=== PATIENT | female | born 1965 | race Caucasian/White ===

== ENCOUNTER 2019-01-06 19:25 | Emergency (ER) | payer MEDICAID ==
[2019-01-06] MEDS ORDERED: IBUPROFEN 800 MG TABLET PO ONE (19:55)
--- NOTE | 2019-01-06 19:58 | ER Document Report ---
ED Medical Screen (RME) - General Chief Complaint: Abscess Stated Complaint: BOIL Time Seen by Provider: 01/06/19 19:51 Mode of Arrival: Ambulatory Information source: Patient Notes: Patient presents to the emergency department with an abscess to the middle of her back. Reports she is had it for long time but the past 4 days it started swollen drainage is severely painful. Denies fever. Denies history of MRSA. Reports she has had these abscesses before before Offered Percocet for pain declined request Motrin. I have greeted and performed a rapid initial assessment of this patient. A comprehensive ED assessment and evaluation of the patient, analysis of test results and completion of the medical decision making process will be conducted by additional ED providers. Dictation of this chart was performed using voice recognition software; therefore, there may be some unintended grammatical errors. TRAVEL OUTSIDE OF THE [place] IN LAST 30 DAYS: No - Related Data Allergies/Adverse Reactions: No Known Allergies Allergy (Unverified 01/06/19 19:28) Physical Exam - Vital signs Vitals: Temp Pulse Resp BP Pulse Ox 98.3 F 86 18 151/86 H 97 01/06/19 19:34 01/06/19 19:34 01/06/19 19:34 01/06/19 19:34 01/06/19 19:34 Course - Vital Signs Vital signs: Temp Pulse Resp BP Pulse Ox 98.3 F 86 18 151/86 H 97 01/06/19 19:34 01/06/19 19:34 01/06/19 19:34 01/06/19 19:34 01/06/19 19:34
[2019-01-06] MEDS ORDERED: LIDOCAINE 1%/EPINEPHRINE INJ 20 ML VIAL INJ ONE ×2 (20:18→20:19)
--- NOTE | 2019-01-06 20:23 | ER Document Report ---
ED Skin Rash/Insect Bite/Abscs - General Chief Complaint: Abscess Stated Complaint: BOIL Time Seen by Provider: 01/06/19 19:51 Primary Care Provider: COLETTE HADLEY DO [ACTIVE STAFF] - Follow up as needed Mode of Arrival: Ambulatory Notes: Patient is a 53 year old female that comes to the Emergency Department for chief complaint of an abscess to the right mid back. She states this is been present as a cyst for over a year but over the past 4 days it has become painful, swollen, and started to drain. She has had other abscesses drained in the past on her chest. She denies fever/chills, nausea/vomiting. She denies any other complaints. She denies diagnosis of MRSA. She denies any daily medications or any diagnosed medical problems. TRAVEL OUTSIDE OF THE [place] IN LAST 30 DAYS: No - Related Data Allergies/Adverse Reactions: No Known Allergies Allergy (Unverified 01/06/19 19:28) Past Medical History - General Information source: Patient - Social History Smoking Status: Current Every Day Smoker Chew tobacco use (# tins/day): No Frequency of alcohol use: Social Drug Abuse: None Lives with: Family Family History: Reviewed & Not Pertinent Patient has suicidal ideation: No Patient has homicidal ideation: No Pulmonary Medical History: Reports: Hx COPD Renal/ Medical History: Denies: Hx Peritoneal Dialysis Past Surgical History: Reports: Hx Tonsillectomy - Immunizations Immunizations up to date: Yes Hx Diphtheria, Pertussis, Tetanus Vaccination: Yes Review of Systems - Review of Systems Constitutional: No symptoms reported EENT: No symptoms reported Cardiovascular: No symptoms reported Respiratory: No symptoms reported Gastrointestinal: No symptoms reported Genitourinary: No symptoms reported Female Genitourinary: No symptoms reported Musculoskeletal: No symptoms reported Skin: See HPI Hematologic/Lymphatic: No symptoms reported Neurological/Psychological: No symptoms reported Physical Exam - Vital signs Vitals: Temp Pulse Resp BP Pulse Ox 98.3 F 86 18 151/86 H 97 01/06/19 19:34 01/06/19 19:34 01/06/19 19:34 01/06/19 19:34 01/06/19 19:34 - Notes Notes: GENERAL: Alert, interacts well. HEAD: Normocephalic, atraumatic. EYES: Pupils equal, round, and reactive to light. Extraocular movements intact. ENT: Oral mucosa moist, tongue midline. Oropharynx unremarkable. NECK: Full range of motion. Supple. Trachea midline. LUNGS: Clear to auscultation bilaterally, no wheezes, rales, or rhonchi. No respiratory distress. HEART: Regular rate and rhythm. No murmur ABDOMEN: Soft, non-tender. Non-distended. Bowel sounds present in all 4 quadrants. GENITOURINARY: Deferred EXTREMITIES: Moves all 4 extremities spontaneously. No edema, normal radial and dorsalis pedis pulses bilaterally. No cyanosis. BACK: no cervical, thoracic, lumbar midline tenderness. No saddle anesthesia, normal distal neurovascular exam. Moves all extremities in full range of motion. NEUROLOGICAL: Alert and oriented x3. Normal speech. Cranial nerves II through XII grossly intact. PSYCH: Anxious but cooperative SKIN: Large oval-shaped fluctuant abscess in the mid right back at the thoracic area consistent with a sebaceous cyst abscess. Minimal surrounding erythema. Remaining skin exam is unremarkable. Course - Re-evaluation Re-evalutation: Patient declined pain medication other than ibuprofen, however then afterwards she became very anxious before the procedure. She was given 5 mg of Valium. This did help. Patient tolerated this procedure very well. She is very grateful afterwards. Very large amount of purulent material was expressed, attempted to remove the cyst wall, however I explained to her that when the cyst is infected it is almost impossible to complete remove and recurrence is likely. Discussed follow-up for this outpatient to have this removed when it is not infected. Discussed treatment and return precautions. She states understanding and agreement. - Vital Signs Vital signs: Temp Pulse Resp BP Pulse Ox 98.4 F 77 20 136/85 H 98 01/06/19 21:58 01/06/19 21:58 01/06/19 21:58 01/06/19 21:58 01/06/19 21:58 Procedures - Incision and Drainage Right mid back Type: Single Anesthetic type: 1% Lidocaine w/epi mL's of anesthetic: 8 Blade size: 11 I&D procedure: Shurclens applied, Sterile dressing applied Incision Method: Incision made by scalpel Amount/type of drainage: Very large amount of cheesy purulent drainage expressed with minimal blood Notes: Area was cleaned thoroughly, anesthesia provided with lidocaine with epinephrine with good results, area excised, very large amount of cheesy purulent material was expressed consistent with sebaceous cyst abscess. I was able to take out what appeared to be the cyst wall although even with exploration this was uncertain to be completely removed. Area was irrigated and dressed. Patient tolerated well. Discharge - Discharge Clinical Impression: Abscess Condition: Stable Disposition: HOME, SELF-CARE Additional Instructions: Your evaluation is consistent with a sebaceous cyst with infection/abscess. This has been drained. Take antibiotics as prescribed, keep clean dressing over the area, clean with soap and water. This should resolve with time. This can recur because it is very hard to remove the entire cyst when this is inflamed. Follow-up with the dermatology referral listed below if the cyst returns before this becomes infected to prevent recurrent infections. Return if you worsen including developing or spreading redness, pain, fever, or any other concerning symptoms. Prescriptions: Sulfamethoxazole/Trimethoprim [Bactrim Ds Tablet] 1 each PO BID #14 tablet Referrals: COLETTE HADLEY DO [ACTIVE STAFF] - Follow up as needed
[2019-01-06] MEDS ORDERED: DIAZEPAM 5 MG TABLET PO ONE (20:29)
[2019-01-06] MEDS ORDERED: HYDROCODONE/ACETAMINOPHEN 5-325 MG (6 TAB/ER DISP) PO PRN (21:41)
[2019-01-06 22:02] VITALS: BP 136/85
== END 2019-01-06 21:58 | disposition home or self-care (01) ==
LOC: ER 19:25
DX: L02.212 Cutaneous abscess of back [any part, except buttock and flank] (principal); F17.200 Nicotine dependence, unspecified, uncomplicated; J44.9 Chronic obstructive pulmonary disease, unspecified
CPT/HCPCS: 99283; 10060; J3490 ×3

== ENCOUNTER 2019-06-10 18:20 | Emergency (ER) | payer MEDICAID ==
--- NOTE | 2019-06-10 18:37 | ER Document Report ---
ED Medical Screen (RME) - General Chief Complaint: Vaginal Pain Stated Complaint: VAGINAL PAIN Time Seen by Provider: 06/10/19 18:26 Primary Care Provider: KING OSULLIVAN FNP-C [Primary Care Provider] - Follow up as needed Notes: Patient is a 53-year-old female with a history of hypertension, COPD, chronic bronchitis who presents emergency department today with a chief complaint of suprapubic pain. Patient reports she did wake up with suprapubic pain since 5 AM. Patient reports not radiating into the vagina. Patient states she is not currently have any discharge or bleeding. Patient reports she is having trouble urinating and feels like only a small amount is coming out. Patient denies fever or back pain. Patient reports she does have a history of high blood pressure and did take her lisinopril this morning. Patient reports she does have anxiety and feels anxious at this time. Patient reports she does drink alcohol daily and did have 5 beers. Patient denies recreational drug use. TRAVEL OUTSIDE OF THE [place] IN LAST 30 DAYS: No - Related Data Allergies/Adverse Reactions: No Known Allergies Allergy (Verified 06/10/19 18:31) Past Medical History - Social History Chew tobacco use (# tins/day): No Frequency of alcohol use: Heavy Drug Abuse: None - Past Medical History Cardiac Medical History: Reports: Hx Hypertension Pulmonary Medical History: Reports: Hx COPD Renal/ Medical History: Denies: Hx Peritoneal Dialysis Past Surgical History: Reports: Hx Tonsillectomy - Immunizations Immunizations up to date: Yes Hx Diphtheria, Pertussis, Tetanus Vaccination: Yes Physical Exam - Vital signs Vitals: Temp Pulse Resp BP Pulse Ox 97.9 F 95 18 192/94 H 96 06/10/19 18:24 06/10/19 18:24 06/10/19 18:24 06/10/19 18:24 06/10/19 18:24 - Abdominal Notes: Suprapubic tenderness noted. Course - Re-evaluation Re-evalutation: 06/10/19 18:37 I have greeted and performed a rapid initial assessment of this patient. A comprehensive ED assessment and evaluation of the patient, analysis of test results and completion of the medical decision making process will be conducted by additional ED providers. - Vital Signs Vital signs: Temp Pulse Resp BP Pulse Ox 97.9 F 95 18 192/94 H 96 06/10/19 18:31 06/10/19 18:24 06/10/19 18:31 06/10/19 18:24 06/10/19 18:31 Doctor's Discharge - Discharge Referrals: KING OSULLIVAN, FI[employer]IEUTENANT MARINE-C [Primary Care Provider] - Follow up as needed
[2019-06-10 19:05] LABS: APPEARANCE,URINE CLEAR; BILIRUBIN,URINE NEGATIVE (NEGATIVE); COLOR,URINE COLORLESS; GLUCOSE, URINE NEGATIVE (NEGATIVE); KETONES,URINE NEGATIVE (NEGATIVE); LEUKOCYTE ESTERASE,URINE NEGATIVE (NEGATIVE); NITRITE,URINE NEGATIVE (NEGATIVE); PROTEIN,URINE NEGATIVE (NEGATIVE); URINE SPECIFIC GRAVITY 1.002; UROBILINOGEN,URINE NEGATIVE mg/dL (<2.0)
[2019-06-10] MEDS ORDERED: NORMAL SALINE 1000 ML 1,000 ML IV ONE (19:21)
[2019-06-10] MEDS ORDERED: KETOROLAC TROMETHAMINE INJ/PF 30 MG/1 ML SDV IV ONE (19:22)
[2019-06-10] MEDS ORDERED: ONDANSETRON HCL INJ/PF 4 MG/2 ML SDV IV ONE (19:23)
[2019-06-10 20:20] LABS: ABSOLUTE MONOCYTES (AUTO) 0.6 10^3/uL (0.1-1.4); ABSOLUTE NEUT (AUTO) 3.7 10^3/uL (1.7-8.2); BASOPHILS % (AUTO) 0.6 % (0-2); EOSINOPHILS % (AUTO) 0.7 % (0-6); HEMATOCRIT 38.8 % (36.0-47.0); HEMOGLOBIN 13.5 g/dL (12.0-15.5); LYMPHOCYTES % (AUTO) 40.8 % (13-45); MEAN CORPUSCULAR HEMOGLOBIN 34.5 pg (27.0-33.4); MEAN CORPUSCULAR HGB CONC 34.8 g/dL (32.0-36.0); MEAN CORPUSCULAR VOLUME 99 fl (80-97); MONOCYTES % (AUTO) 7.7 % (3-13); PLATELET COUNT 253 10^3/uL (150-450); RED BLOOD COUNT 3.92 10^6/uL (3.72-5.28); RED CELL DISTRIBUTION WIDTH 12.6 % (11.5-14.0); SEGMENTED NEUTROPHILS % (AUTO) 50.2 % (42-78); TOTAL CELLS COUNTED % (AUTO) 100 %; WHITE BLOOD COUNT 7.4 10^3/uL (4.0-10.5)
--- NOTE | 2019-06-10 20:45 | ER Document Report ---
Entered by VANESSA BARTON SCRIBE 06/10/191920 Acting as scribe for:AIYANA ONEAL IV, MD ED GI/ - General Chief Complaint: Vaginal Pain Stated Complaint: VAGINAL PAIN Time Seen by Provider: 06/10/19 18:26 Primary Care Provider: KING OSULLIVAN FNP-C [Primary Care Provider] - Follow up as needed Mode of Arrival: Ambulatory Information source: Patient Notes: This 53 year old female patient presents to the emergency department today with complaints of lower abdominal pain. Patient states that at 0500 this morning she was awoken with sharp stabbing lower abdominal pain. Patient states she feels like she has to go to the bathroom frequently "but only a little comes out". Patient denies any flank pain, back pain, or history of diverticulitis. TRAVEL OUTSIDE OF THE [place] IN LAST 30 DAYS: No - Related Data Allergies/Adverse Reactions: No Known Allergies Allergy (Verified 06/10/19 18:31) Past Medical History - General Information source: Patient - Social History Smoking Status: Current Every Day Smoker Cigarette use (# per day): Yes Chew tobacco use (# tins/day): No Frequency of alcohol use: Heavy Drug Abuse: None Family History: Reviewed & Not Pertinent Patient has suicidal ideation: No Patient has homicidal ideation: No - Past Medical History Cardiac Medical History: Reports: Hx Hypertension Pulmonary Medical History: Reports: Hx COPD Past Surgical History: Reports: Hx Tonsillectomy - Immunizations Immunizations up to date: Yes Hx Diphtheria, Pertussis, Tetanus Vaccination: Yes Review of Systems - Review of Systems Constitutional: No symptoms reported EENT: No symptoms reported Cardiovascular: No symptoms reported Respiratory: No symptoms reported Gastrointestinal: See HPI, Abdominal pain Genitourinary: See HPI, Frequency, Urgency. denies: Dysuria Female Genitourinary: No symptoms reported Musculoskeletal: No symptoms reported Skin: No symptoms reported Hematologic/Lymphatic: No symptoms reported Neurological/Psychological: No symptoms reported -: Yes All other systems reviewed and negative Physical Exam - Vital signs Vitals: Temp Pulse Resp BP Pulse Ox 97.9 F 95 18 192/94 H 96 06/10/19 18:24 06/10/19 18:24 06/10/19 18:24 06/10/19 18:24 06/10/19 18:24 Interpretation: Normal - General General appearance: Alert, Other - smells heavy of tobacco - HEENT Head: Normocephalic, Atraumatic Eyes: Normal Pupils: PERRL - Respiratory Respiratory status: No respiratory distress Chest status: Nontender Breath sounds: Normal Chest palpation: Normal - Cardiovascular Rhythm: Regular Heart sounds: Normal auscultation Murmur: No - Abdominal Distension: No distension Bowel sounds: Normal Tenderness: Tender - lower abdominal tenderness with palpation Organomegaly: No organomegaly - Back Back: Normal, Nontender - Extremities General upper extremity: Normal inspection. No: Tender General lower extremity: Normal inspection. No: Tender - Neurological Neuro grossly intact: Yes Cognition: Normal Orientation: AAOx4 Darek Coma Scale Eye Opening: Spontaneous Johnson Coma Scale Verbal: Oriented Johnson Coma Scale Motor: Obeys Commands Darek Coma Scale Total: 15 Speech: Normal Motor strength normal: LUE, RUE, LLE, RLE Sensory: Normal - Psychological Associated symptoms: Normal affect, Normal mood - Skin Skin Temperature: Warm Skin Moisture: Dry Skin Color: Normal Course - Vital Signs Vital signs: Temp Pulse Resp BP Pulse Ox 97.9 F 95 18 192/94 H 96 06/10/19 18:31 06/10/19 18:24 06/10/19 18:31 06/10/19 18:24 06/10/19 18:31 - Laboratory Result Diagrams: 06/10/19 19:55 06/10/19 19:55 Laboratory results interpreted by me: 06/10/19 06/10/19 19:55 19:55 MCV 99 H MCH 34.5 H Sodium 132.9 L Chloride 97 L BUN 6 L - Diagnostic Test Radiology reviewed: Reports reviewed Discharge - Discharge Clinical Impression: Dysuria Condition: Good Disposition: HOME, SELF-CARE Additional Instructions: Return to the Emergency Department without delay if any worse. Urinary Tract Infection Your evaluation indicates that you have a urinary tract infection. This is due to germs growing in the bladder. This is a common problem. This infection usually responds quickly to antibiotics. Your antibiotic should be taken exactly as prescribed. Drink plenty of fluids -- three to four quarts a day. Occasionally, a bladder anesthetic will be prescribed to help stop the feeling of urgency until the antibiotic has a chance to clear the infection. This may cause your urine to be dark orange. Certain urine infections require a culture. If the doctor obtained a culture, the results will be back in two days. You should call to see if a change in treatment is needed. A repeat urinalysis after you finish treatment is often recommended. The physician will let you know if further testing is required. Call the doctor if you develop fever, chills, flank pain, inability to urinate, or blood in the urine. HOME CARE INSTRUCTIONS & INFORMATION: Thank you for choosing us for your medical needs. We hope you're satisfied with the care you received. After you leave, you must properly care for your problem and, at the same time, observe its progress. Any condition can change. Some illnesses can change rapidly over hours or days. If your condition worsens, return to the Emergency Department or see your physician promptly. ABOUT YOUR X-RAYS AND EKG'S: If you had an EKG or X-rays taken, they have been read by the Emergency Physician. The X-rays and EKG's will also be read by a Radiologist or [place] Technician within 24 hours. If discrepancies are noted, you will be notified by telephone. Please be certain the ED has a correct telephone number & address where you can be reached. Also, realize that some fractures or abnormalities do not show up on initial X-rays. If your symptoms continue, see your physician. ABOUT YOUR LABORATORY TEST: If you had laboratory tests, the results have been reviewed by the Emergency Physician. Some test results (for example cultures) may not be available for several days. You will be contacted if any test result shows you need additional treatment. Please be certain the ED has a correct telephone number and address where you can be reached. ABOUT YOUR MEDICATIONS: You will receive instructions on how to take your medicine on the prescription label you receive. Additional information may be provided by the Pharmacy. If you have questions afterwards, call the ED for clarification or further instructions. Some prescribed medications may cause dr pillo. Do not perform tasks such as driving a car or operating machinery without consulting your Pharmacist. If you feel you need a refill of pain medication, your condition will need re-evaluation. Please do not call for a refill of any medication. ABOUT YOUR SIGNATURE: Signature of this document acknowledges to followin. Understanding that you received emergency treatment and that you may be released before al medical problems are known or treated. Please be certain the ED has a correct phone number & address where you can be reached. 2. Acknowledgement that you will arrange for follow-up care as recommended. 3. Authorization for the Emergency Physician to provide information to your follow-up Physician in order to maximize your care. AT ANY TIME, IF YOUR SYMPTOMS CHANGE SIGNIFICANTLY OR WORSEN OR YOU DEVELOP NEW SYMPTOMS, RETURN TO THE EMERGENCY DEPARTMENT IMMEDIATELY FOR RE-EVALUATION. OUR GOAL IS TO PROVIDE EXCELLENT MEDICAL CARE! WE HOPE THAT WE HAVE MET YOUR EXPECTATIONS DURING YOUR EMERGENCY DEPARTMENT VISIT AND THAT YOU FEEL YOU HAVE RECEIVED EXCELLENT CARE! Prescriptions: Nitrofurantoin Macrocrystal [Macrodantin] 100 mg PO BID #14 capsule Phenazopyridine HCl [Pyridium 200 mg Tablet] 200 mg PO TID #6 tablet Referrals: KING OSULLIVAN FNP-C [Primary Care Provider] - Follow up as needed I personally performed the services described in the documentation, reviewed and edited the documentation which was dictated to the scribe in my presence, and it accurately records my words and actions.
[2019-06-10 20:46] LABS: ALBUMIN 4.2 g/dL (3.5-5.0); ALKALINE PHOSPHATASE 45 U/L (38-126); ANION GAP 13 (5-19); ASPARTATE AMINO TRANSFERASE 22 U/L (14-36); BILIRUBIN,DIRECT 0.2 mg/dL (0.0-0.4); BILIRUBIN,TOTAL 0.4 mg/dL (0.2-1.3); BLOOD UREA NITROGEN 6 mg/dL (7-20); CARBON DIOXIDE 23 mmol/L (22-30); CHLORIDE 97 mmol/L (98-107); GLUCOSE 88 mg/dL (75-110); POTASSIUM 3.8 mmol/L (3.6-5.0); TOTAL PROTEIN 7.2 g/dL (6.3-8.2)
--- NOTE | 2019-06-10 22:58 | RADIOLOGY REPORT (SQ) ---
EXAM DESCRIPTION: CT ABDOMEN PELVIS WITH IV CONTRAST COMPLETED DATE/TME: 06/10/2019 00:00 CLINICAL HISTORY: 53 years, Female, bilateral lower abdominal pain COMPARISON: None. TECHNIQUE: Contrast enhanced CT of the abdomen/pelvis was performed. Images were obtained after the uneventful administration of 62.1 mL of Omnipaque 350 intravenous contrast. Images stored on PACS. All CT scanners at this facility use dose modulation, iterative reconstruction, and/or weight based dosing when appropriate to reduce radiation dose to as low as reasonably achievable (ALARA). [facility]: Dose Right [facility]: CareDose [facility]: Dose Right [facility]: Teradose 4D [facility]: exsulin LIMITATIONS: None. FINDINGS: Limited evaluation of the lower chest reveals clear lung bases. The liver, spleen, pancreas, gallbladder, and both adrenal glands appear normal. Both kidneys enhance symmetrically. No hydronephrosis or hydroureter. The urinary bladder is well distended and shows no suspicious finding. Uterus and both ovaries show no suspicious abnormality. Small and large bowel are normal in caliber. No evidence of bowel obstruction. Appendix is normal. Calcifications are evident about the abdominal aorta and proximal iliac vessels. No suspicious lymphadenopathy or drainable fluid collections are appreciated. Bone windows show no destructive osseous lesions. IMPRESSION: No acute abnormality within the abdomen or pelvis. TECHNICAL DOCUMENTATION: Quality ID # 436: Final reports with documentation of one or more dose reduction techniques (e.g., Automated exposure control, adjustment of the mA and/or kV according to patient size, use of iterative reconstruction technique) copyright 2011 [employer]- All Rights Reserved
[2019-06-10] MEDS ORDERED: PHENAZOPYRIDINE HCL 200 MG TABLET PO ONE (23:11)
[2019-06-10] MEDS ORDERED: NITROFURANTOIN MONOHYD/M-CRYST 100 MG CAPSULE PO ONE (23:11)
[2019-06-10 23:23] VITALS: BP 166/84
== END 2019-06-10 23:22 | disposition home or self-care (01) ==
LOC: ER 18:20
DX: R30.0 Dysuria (principal); R35.0 Frequency of micturition; R10.2 Pelvic and perineal pain; R10.30 Lower abdominal pain, unspecified; F17.210 Nicotine dependence, cigarettes, uncomplicated; I10 Essential (primary) hypertension; J44.9 Chronic obstructive pulmonary disease, unspecified
CPT/HCPCS: 99284; 96361; 96374; 96375; 36415; 83690; 85025; 80053; 81001; 74177; J1885; J3490 ×2; J2405; J7030; J8499

== ENCOUNTER 2019-08-17 14:28 | Emergency (ER) | payer MEDICAID ==
--- NOTE | 2019-08-17 14:44 | ER Document Report ---
ED Medical Screen (RME) - General Chief Complaint: Flu Symptoms Stated Complaint: FLU SYMPTOMS Time Seen by Provider: 08/17/19 14:38 Primary Care Provider: KING OSULLIVAN FNP-C [Primary Care Provider] - Follow up as needed Mode of Arrival: Ambulatory Information source: Patient Notes: 54-year-old female presented to ED for shortness of breath cough congestion naus ea vomiting and diarrhea. States she vomited right before coming to the emergency room. She does have a pulse of 122 O2 sat of 96% as of 38. She is trembling. She states she gets very short of breath and trembles when she walks across the room. She does have chronic pain and is at about a 4 this time. She states she usually smokes 1/2 pack of cigarettes a day but she has not been able to smoke 1 cigarette since yesterday due to her shortness of breath. She states she does have high blood pressure and high cholesterol. States she also has COPD occasional asthma. Patient is alert and oriented she is very short of breath at this time I have greeted and performed a rapid initial assessment of this patient. A comprehensive ED assessment and evaluation of the patient, analysis of test results and completion of medical decision making process will be conducted by an additional ED providers. TRAVEL OUTSIDE OF THE [place] IN LAST 30 DAYS: No - Related Data Allergies/Adverse Reactions: No Known Allergies Allergy (Verified 06/10/19 18:31) Past Medical History - Past Medical History Cardiac Medical History: Reports: Hx Hypertension Pulmonary Medical History: Reports: Hx COPD Renal/ Medical History: Denies: Hx Peritoneal Dialysis Past Surgical History: Reports: Hx Tonsillectomy - Immunizations Immunizations up to date: Yes Hx Diphtheria, Pertussis, Tetanus Vaccination: Yes Physical Exam - Vital signs Vitals: Temp Pulse Resp BP Pulse Ox 98.6 F 118 H 36 H 183/93 H 93 08/17/19 14:33 08/17/19 14:33 08/17/19 14:33 08/17/19 14:33 08/17/19 14:33 Course - Vital Signs Vital signs: Temp Pulse Resp BP Pulse Ox 98.6 F 118 H 36 H 183/93 H 93 08/17/19 14:33 08/17/19 14:33 08/17/19 14:33 08/17/19 14:33 08/17/19 14:33 Doctor's Discharge - Discharge Referrals: KING OSULLIVAN, HIGH [employer]UE ASSOCIATE-C [Primary Care Provider] - Follow up as needed
--- NOTE | 2019-08-17 15:33 | RADIOLOGY REPORT (SQ) ---
EXAM DESCRIPTION: CHEST 2 VIEWS COMPLETED DATE/TIME: 08/17/2019 3:21 pm REASON FOR STUDY: Tachycardia, short of breath, history COPD COMPARISON: None. EXAM PARAMETERS: NUMBER OF VIEWS: Two views. TECHNIQUE: PA and lateral views of the chest were obtained.. RADIATION DOSE: NA LIMITATIONS: none FINDINGS: LUNGS AND PLEURA: No consolidation, pleural effusion or pneumothorax. MEDIASTINUM AND HILAR STRUCTURES: No mediastinal or hilar contour abnormality. HEART AND VASCULAR STRUCTURES: The cardiac silhouette and pulmonary vasculature are within normal mckoy its. BONES: No acute findings. HARDWARE: None in the chest. OTHER: No other finding. IMPRESSION: No acute cardiopulmonary process. TECHNICAL DOCUMENTATION: JOB ID: [id number] 2010 [employer]- All Rights Reserved Reading location - IP/workstation name: [email or web address]
[2019-08-17 15:40] LABS: ALBUMIN 4.3 g/dL (3.5-5.0); ALKALINE PHOSPHATASE 55 U/L (38-126); ANION GAP 11 (5-19); ASPARTATE AMINO TRANSFERASE 29 U/L (14-36); BILIRUBIN,DIRECT 0.4 mg/dL (0.0-0.4); BILIRUBIN,TOTAL 0.5 mg/dL (0.2-1.3); BLOOD UREA NITROGEN 11 mg/dL (7-20); CALCIUM 9.6 mg/dL (8.4-10.2); CARBON DIOXIDE 27 mmol/L (22-30); CHLORIDE 101 mmol/L (98-107); GLUCOSE 136 mg/dL (75-110); POTASSIUM 3.8 mmol/L (3.6-5.0); TOTAL PROTEIN 7.6 g/dL (6.3-8.2)
[2019-08-17 15:41] LABS: ABSOLUTE LYMPHOCYTES (AUTO) 0.4 10^3/uL (0.5-4.7); ABSOLUTE MONOCYTES (AUTO) 0.6 10^3/uL (0.1-1.4); ABSOLUTE NEUT (AUTO) 3.9 10^3/uL (1.7-8.2); BASOPHILS % (AUTO) 0.3 % (0-2); HEMATOCRIT 42.1 % (36.0-47.0); HEMOGLOBIN 14.3 g/dL (12.0-15.5); LYMPHOCYTES % (AUTO) 7.4 % (13-45); MEAN CORPUSCULAR HEMOGLOBIN 33.5 pg (27.0-33.4); MEAN CORPUSCULAR VOLUME 99 fl (80-97); MONOCYTES % (AUTO) 11.8 % (3-13); PLATELET COUNT 247 10^3/uL (150-450); RED BLOOD COUNT 4.26 10^6/uL (3.72-5.28); RED CELL DISTRIBUTION WIDTH 12.7 % (11.5-14.0); SEGMENTED NEUTROPHILS % (AUTO) 80.5 % (42-78); TOTAL CELLS COUNTED % (AUTO) 100 %; WHITE BLOOD COUNT 4.8 10^3/uL (4.0-10.5)
[2019-08-17 15:52] LABS: NT PRO BNP 1190 pg/mL (<125)
[2019-08-17 15:53] LABS: TROPONIN I < 0.012 ng/mL
--- NOTE | 2019-08-17 17:55 | ER Document Report ---
ED General - General Chief Complaint: Flu Symptoms Stated Complaint: FLU SYMPTOMS Time Seen by Provider: 08/17/19 14:38 Primary Care Provider: KING OSULLIVAN FNP-C [NO LOCAL MD] - Follow up as needed Mode of Arrival: Ambulatory Information source: Patient, Relative - next room 6 Notes: 54 year old female arrives with chief complaint of 2 days of flulike symptoms she was taking care of her who was sick for last 5 days with flulike symptoms. She reports she was trying to use her inhaler when she became short of breath today. TRAVEL OUTSIDE OF THE [place] IN LAST 30 DAYS: No - HPI Onset: Other - 2 days ago Onset/Duration: Sudden Quality of pain: No pain Severity: Mild Pain Level: 1 Associated symptoms: Body/muscle aches, Productive cough, Fever, Headache, Weakness Exacerbated by: Movement, Coughing, Deep breathing Relieved by: Remaining still Similar symptoms previously: No Recently seen / treated by doctor: No - Related Data Allergies/Adverse Reactions: No Known Allergies Allergy (Verified 06/10/19 18:31) Past Medical History - General Information source: Patient - Social History Smoking Status: Current Every Day Smoker Cigarette use (# per day): Yes Chew tobacco use (# tins/day): No Smoking Education Provided: Yes Frequency of alcohol use: None Drug Abuse: None Lives with: Family Family History: Reviewed & Not Pertinent Patient has suicidal ideation: No Patient has homicidal ideation: No - Past Medical History Cardiac Medical History: Reports: Hx Hypertension Pulmonary Medical History: Reports: Hx COPD Renal/ Medical History: Denies: Hx Peritoneal Dialysis Past Surgical History: Reports: Hx Tonsillectomy - Immunizations Immunizations up to date: Yes Hx Diphtheria, Pertussis, Tetanus Vaccination: Yes Review of Systems - Review of Systems Constitutional: See HPI, Fever, Malaise, Weakness EENT: See HPI, Nose congestion Cardiovascular: See HPI, Orthopnea, Dyspnea Respiratory: See HPI, Hurts to breathe, Short of breath, Wheezing Gastrointestinal: No symptoms reported Genitourinary: No symptoms reported Female Genitourinary: No symptoms reported Musculoskeletal: No symptoms reported Skin: No symptoms reported Hematologic/Lymphatic: No symptoms reported Neurological/Psychological: No symptoms reported Physical Exam - Vital signs Vitals: Temp Pulse Resp BP Pulse Ox 98.6 F 118 H 36 H 183/93 H 93 08/17/19 14:33 08/17/19 14:33 08/17/19 14:33 08/17/19 14:33 08/17/19 14:33 Interpretation: Hypertensive, Tachypneic - General General appearance: Alert In distress: Mild - HEENT Head: Normocephalic Eyes: Normal Conjunctiva: Normal Cornea: Normal Extraocular movements intact: Yes Eyelashes: Normal Pupils: PERRL Sinus: Tenderness Nasal: Clear rhinorrhea Mouth/Lips: Normal Mucous membranes: Dry Pharynx: Normal Neck: Normal - Respiratory Respiratory status: Tachypnea Chest status: Nontender Breath sounds: Wheezing Chest palpation: Normal - Cardiovascular Rhythm: Tachycardia Heart sounds: Normal auscultation Murmur: No Friction rub: No Sam's crunch: No - Abdominal Inspection: Normal Distension: No distension Bowel sounds: Normal Tenderness: Nontender Organomegaly: No organomegaly - Back Back: Normal - Extremities General upper extremity: Normal inspection General lower extremity: Normal inspection - Neurological Neuro grossly intact: Yes Cognition: Normal Orientation: AAOx4 Darek Coma Scale Eye Opening: Spontaneous Spring Coma Scale Verbal: Oriented Speech: Normal Cranial nerves: Normal Cerebellar coordination: Normal Motor strength normal: LUE, RUE, LLE, RLE - Psychological Associated symptoms: Normal affect - Skin Skin Temperature: Warm Skin Moisture: Dry Course - Vital Signs Vital signs: Temp Pulse Resp BP Pulse Ox 98.4 F 121 H 21 H 150/84 H 98 08/17/19 16:07 08/17/19 14:42 08/17/19 17:01 08/17/19 17:00 08/17/19 17:01 - Laboratory Result Diagrams: 08/17/19 15:04 08/17/19 15:04 Laboratory results interpreted by me: 08/17/19 08/17/19 08/17/19 15:04 15:04 15:04 MCV 99 H MCH 33.5 H Lymph % (Auto) 7.4 L Absolute Lymphs (auto) 0.4 L Seg Neutrophils % 80.5 H Glucose 136 H NT-Pro-B Natriuret Pep 1190 H - Diagnostic Test Radiology reviewed: Reports reviewed - EKG Interpretation by Me EKG shows normal: Sinus rhythm Rate: Tachycardia Rhythm: NSR, Other - Left anterior fascicular block and low voltage frontal leads Critical Care Note - Critical Care Note Total time excluding time spent on procedures (mins): 90 Comments: Improved after 10 mg albuterol breathing treatment and patient reports she can breathe much better and wants to go home. Discharge - Discharge Clinical Impression: Influenza, Asthmatic bronchitis Condition: Good Disposition: HOME, SELF-CARE Additional Instructions: follow up PMD; return to ED as needed;take medicines as directed Prescriptions: Hydrocodone Bit/Homatropine [Hycodan Syrup 5-1.5 mg/5 ml Ud Cup] 5 ml PO Q4HP PRN #120 ml PRN Reason: Hydroxyzine HCl [Atarax 2 mg/ml Syrup] 10 mg PO TID PRN #60 ml PRN Reason: Congestion Prednisone [Deltasone 20 mg Tablet] 1 tab PO DAILY 5 Days tablet Levofloxacin [Levaquin 750 mg Tablet] 500 mg PO DAILY #10 tablet Forms: Return to Work Referrals: KING OSULLIVAN FNP-C [NO LOCAL MD] - Follow up as needed
[2019-08-17] MEDS ORDERED: LEVOFLOXACIN 750 MG/D5W RTU 750 MG/150 ML RTUPB IV ONE (17:56)
[2019-08-17] MEDS ORDERED: ALBUTEROL SULFATE 0.083% NEB 2.5 MG/3 ML AMPUL NEB ONE (17:56)
[2019-08-17] MEDS ORDERED: KETOROLAC TROMETHAMINE INJ/PF 30 MG/1 ML SDV IV ONE (17:57)
[2019-08-17] MEDS ORDERED: DEXAMETHASONE SOD PHOS INJ 10 MG/1 ML VIAL IV ONE (17:57)
[2019-08-17] MEDS ORDERED: BUMETANIDE INJ/PF 1 MG/4 ML SDV IV ONE (17:59)
[2019-08-17 19:20] LABS: A TYPE INFLUENZA AG NEGATIVE (NEGATIVE)
[2019-08-17 19:21] LABS: B INFLUENZA AG NEGATIVE (NEGATIVE)
[2019-08-17 20:18] VITALS: BP 160/90
--- NOTE | 2019-08-17 20:18 | EKG REPORT ---
SEVERITY:- ABNORMAL ECG - SINUS TACHYCARDIA LEFT ANTERIOR FASCICULAR BLOCK LOW VOLTAGE IN FRONTAL LEADS BORDERLINE T ABNORMALITIES, ANT-LAT LEADS : Confirmed by: Dereje Hogdes MD 17-Aug-2019 20:17:47
== END 2019-08-17 20:18 | disposition home or self-care (01) ==
LOC: ER 14:28
DX: J11.1 Influenza due to unidentified influenza virus with other respiratory manifestations (principal); J45.909 Unspecified asthma, uncomplicated; M79.10 Myalgia, unspecified site; R51 Headache; R00.0 Tachycardia, unspecified; R53.1 Weakness; F17.210 Nicotine dependence, cigarettes, uncomplicated; I10 Essential (primary) hypertension
CPT/HCPCS: 93005; 94640; 99285; 96375; 96365; 36415; 85025; 80053; 84484; 87804; 83880; 71046; 93010; J3490; J1885; J1100; J1956

== ENCOUNTER → 2020-07-07 | Outpatient (CLI) | payer MEDICAID ==
--- NOTE | 2020-07-07 10:29 | RADIOLOGY REPORT (SQ) ---
EXAM DESCRIPTION: CHEST 2 VIEWS IMAGES COMPLETED DATE/TIME: 07/07/2020 10:15 am REASON FOR STUDY: (J44.1)CHRONIC OBSTRUCTIVE PULMONARY DISEASE W (ACUTE) EXACERBATION COMPARISON: 08/17/2019 EXAM PARAMETERS: NUMBER OF VIEWS: two views TECHNIQUE: Digital Frontal and Lateral radiographic views of the chest acquired. RADIATION DOSE: NA LIMITATIONS: none FINDINGS: LUNGS AND PLEURA: No opacities, masses or pneumothorax. No pleural effusion. MEDIASTINUM AND HILAR STRUCTURES: No masses or contour abnormalities. HEART AND VASCULAR STRUCTURES: Heart normal size. No evidence for failure. BONES: No acute findings. HARDWARE: None in the chest. OTHER: No other significant finding. IMPRESSION: NO ACUTE RADIOGRAPHIC FINDING IN THE CHEST. TECHNICAL DOCUMENTATION: JOB ID: [id number] 2010 [id number]- All Rights Reserved Reading location - IP/workstation name: [email or web address]
== END ==
LOC: RAD 09:49
PROVIDERS: ATTEND Internal Medicine Pulmonary Disease
DX: J44.1 Chronic obstructive pulmonary disease with (acute) exacerbation (principal)
CPT/HCPCS: 71046